=== PATIENT | female | born 1980 | race Caucasian/White ===

== ENCOUNTER 2021-07-14 10:51 | Observation (INO) | payer BC, OTHER ==
[~2021-07-14] VITALS: Ht 167.6 cm; Wt 108.0 kg
[~2021-07-14 10:51] MED LIST: ALBUTEROL0.63 MG/3 NEB; AMITRIPTYLINE100 MG PO; CARAFATE; CARAFATE1 GM PO; CARAFATE1 GM/10 ML PO; COMBIVENT RESPIM4 GM INH; DICYCLOMINE HCL20 MG PO; ESTRADIOL1 MG PO; GABAPENTIN300 MG PO; HALOPERIDOL1 MG PO; HYDROCODON-ACE1 EA11 PO; HYDROCODON-ACE1 EAC7 PO; MONTELUKAST SOD10 MG PO; NUVARING VAGIN1 EACH VG; NYSTATIN-TRIAMC15 GM TOP; PANTOPRAZOLE SO20 MG PO; PANTOPRAZOLE SO40 MG PO; PREVACID30 MG; PROTONIX40 MG/ML PO; RELAFEN DS1000 MG PO; SUBOXONE 4 MG; TIZANIDINE HCL2 M1 PO; TOPIRAMATE100 MG PO; TRAZODONE HCL150 MG PO; VENLAFAXINE HCL75 M1 PO; WELLBUTRIN XL150 MG PO; XOPENEX0.63 MG/3 INH; XOPENEX1.25 MG/3 INH; ZOFRAN8 MG PO; ZYRTEC10 MG PO; [UNRECOGNIZED DRUG - OTHER] SL
[2021-07-14] MEDS ORDERED: SODIUM CHLORIDE 0.9% 50ML 100 ML ONE (11:26)
[2021-07-14] MEDS ORDERED: SEVOFLURANE INHAL SOLN 250 ML PEN BTL ONE (12:04)
[2021-07-14] MEDS ORDERED: METOCLOPRAMIDE HCL 10 MG/2ML VIAL ONE (12:04)
[2021-07-14] MEDS ORDERED: PROPOFOL IV EMULSION 10 MG/ML 20 ML VIAL ONE (12:04)
[2021-07-14] MEDS ORDERED: DEXAMETHASONE SOD PHOS INJ 4 MG/ML SDV ONE (12:04)
[2021-07-14] MEDS ORDERED: POVIDONE IODINE 0.05% 0.05 % ML PO ONE (12:04)
[2021-07-14] MEDS ORDERED: ONDANSETRON HCL INJ 2MG/ML 2ML 2 MG/ML VIAL ONE ×2 (12:04→14:49)
[2021-07-14] MEDS ORDERED: KETOROLAC TROMETHAMINE 30 MG/ML VIAL ONE (12:04)
[2021-07-14] MEDS ORDERED: LIDOCAINE HCL 2% LOCAL INJ 5 ML SDV VIAL INJ ONE (12:04)
[2021-07-14] MEDS ORDERED: MIDAZOLAM HCL 2 MG/2 ML VIAL ONE (12:47)
[2021-07-14] MEDS ORDERED: FENTANYL CITRATE/PF 100MCG/2 ML INJ ONE ×2 (12:47→14:29)
[2021-07-14] MEDS ORDERED: KETAMINE HCL INJ 50 MG/ML 10 ML VIAL ONE (12:47)
[2021-07-14] MEDS ORDERED: BUPIVACAINE HCL 0.5% INJ 30 ML VIAL INJ ONE (12:48)
[2021-07-14] MEDS ORDERED: ACETAMINOPHEN 1000 MG/100 ML 100 ML IV ONE (12:52)
[2021-07-14] MEDS ORDERED: HYDROMORPHONE 1MG/1ML INJ ONE ×3 (12:52→15:08)
[2021-07-14] MEDS ORDERED: SUGAMMADEX SODIUM 200 MG/2 ML VIAL IV ONE (13:52)
[2021-07-14] MEDS ORDERED: ALBUTEROL SULF 0.083% NEB SOLN 3 ML NEB NEB PRN (14:00)
[2021-07-14] MEDS ORDERED: TIZANIDINE HCL 2 MG PO SCH (14:00)
[2021-07-14] MEDS ORDERED: IPRATROPIUM/ALBUTEROL SULFATE 4 GM INH INH PRN (14:00)
[2021-07-14] MEDS: SODIUM CHLORIDE 0.9% 1000ML 1,000 ML IV SCH (16:39)
[2021-07-14] MEDS: NABUMETONE 1000 MG PO SCH (17:00)
[2021-07-14] MEDS ORDERED: TIZANIDINE HCL 4 MG TAB PO PRN (17:00)
[2021-07-14 17:23] VITALS: BP 128/75
[2021-07-14] MEDS: HYDROCODONE/APAP 5MG-325MG TAB PO PRN (18:39)
[2021-07-14 19:36] VITALS: BP 137/84
[2021-07-14 20:00] VITALS: BP 137/84
[2021-07-14 21:00] VITALS: BP 137/84
[2021-07-14] MEDS ORDERED: HALOPERIDOL 1 MG TAB PO SCH (21:00)
[2021-07-14] MEDS ORDERED: DICYCLOMINE HCL 20 MG TAB PO SCH (21:00)
[2021-07-14] MEDS ORDERED: TRAZODONE HCL 75 MG PO SCH (21:00)
[2021-07-14] MEDS ORDERED: ESTRADIOL 1 MG TAB PO SCH (21:00)
[2021-07-14] MEDS ORDERED: TRAZODONE HCL 50 MG TAB PO SCH (21:00)
[2021-07-14] MEDS ORDERED: TOPIRAMATE 100 MG TAB PO SCH (21:00)
[2021-07-14] MEDS ORDERED: AMITRIPTYLINE HCL 25 MG TAB PO SCH (21:00)
[2021-07-14] MEDS ORDERED: SUCRALFATE 1 GM TAB PO SCH (21:00)
[2021-07-14] MEDS: Morphine 4mg Syringe 4 MG/ML INJ IV PRN (21:08)
[2021-07-14] MEDS: ONDANSETRON HCL INJ 2MG/ML 2ML 2 MG/ML VIAL IV PRN (21:08)
[2021-07-14 22:17] VITALS: BP 137/84
[2021-07-15 00:20] VITALS: BP 112/73
[2021-07-15] MEDS: SODIUM CHLORIDE 0.9% 1000ML 1,000 ML IV SCH (00:29)
[2021-07-15] MEDS: Morphine 4mg Syringe 4 MG/ML INJ IV PRN ×3 (00:33→09:14)
[2021-07-15 04:15] VITALS: BP 114/74
[2021-07-15 04:20] VITALS: BP 114/74
[2021-07-15] MEDS: ONDANSETRON HCL INJ 2MG/ML 2ML 2 MG/ML VIAL IV PRN ×2 (04:47→09:14)
[2021-07-15 06:06] LABS: BASOPHILS % 0.1 % (0.0-1.0); HEMATOCRIT 29.4 % (34.2-44.1); HEMOGLOBIN 8.6 g/dL (12.0-16.0); LYMPHOCYTES # (AUTO) 1.5 (1.0-3.2); MEAN CORPUSCULAR HEMOGLOBIN 24.3 pg (28-32); MEAN CORPUSCULAR HGB CONC 29.3 g/dL (31-35); MEAN CORPUSCULAR VOLUME 83.1 fL (81-99); MONOCYTES # (AUTO) 0.7 (0.2-0.8); MONOCYTES % 7.9 % (4.4-11.3); NEUTROPHILS % 73.6 % (38.7-80.0); PLATELET COUNT 233 x10e3/uL (140-360); RED BLOOD COUNT 3.54 x10e6/uL (3.6-5.1); RED CELL DISTRIBUTION WIDTH 16.7 % (11.7-14.4)
[2021-07-15 06:34] LABS: ANION GAP 9.5 mmol/L (8-16); CALCIUM 7.6 mg/dL (8.4-10.2); CREATININE, SERUM 0.64 mg/dL (0.57-1.11); POTASSIUM 3.5 mmol/L (3.5-5.1)
[2021-07-15] MEDS ORDERED: PANTOPRAZOLE SOD 40 MG TABEC PO SCH (07:30)
[2021-07-15 08:28] VITALS: BP 104/93
[2021-07-15 08:46] VITALS: BP 104/93
[2021-07-15] MEDS: NABUMETONE 1000 MG PO SCH (08:59)
[2021-07-15] MEDS ORDERED: NON-FORMULARY MEDICATION (Pantoprazole Sodium 40 MG) PO SCH (09:00)
[2021-07-15] MEDS ORDERED: BUPROPION HCL 150 MG TABCR PO SCH (09:00)
[2021-07-15] MEDS ORDERED: VENLAFAXINE HCL 75 MG CAPCR PO SCH (09:00)
[2021-07-15] MEDS ORDERED: MONTELUKAST SODIUM 10 MG TAB PO SCH (09:00)
[2021-07-15] MEDS ORDERED: LORATADINE 10 MG TAB PO SCH (09:00)
[2021-07-15] MEDS ORDERED: NON-FORMULARY MEDICATION (Cetirizine Hcl (Zyrtec) 10 MG) PO SCH (09:00)
[2021-07-15] MEDS ORDERED: TOPIRAMATE 100 MG TAB PO SCH (09:00)
[2021-07-15] MEDS ORDERED: PERCOCET 7.5-31 EACH PO (10:55)
[2021-07-15 12:09] VITALS: BP 104/59
[2021-07-15] MEDS ORDERED: ONDANSETRON HCL 4 MG ORAL DISINTEGRATING TAB PO PRN (12:30)
[2021-07-15] MEDS: HYDROCODONE/APAP 5MG-325MG TAB PO PRN (12:59)
== END 2021-07-15 13:12 | disposition home or self-care (01) ==
LOC: OR 10:51 → PACU V 14:13 → MED/SURG 15:54
PROVIDERS: ADMIT Surgery; ATTEND Surgery
DX: K21.00 Gastro-esophageal reflux disease with esophagitis, without bleeding (principal); K44.9 Diaphragmatic hernia without obstruction or gangrene; Z90.49 Acquired absence of other specified parts of digestive tract; Z98.84 Bariatric surgery status; Z82.3 Family history of stroke; Z83.3 Family history of diabetes mellitus; Z82.49 Family history of ischemic heart disease and other diseases of the circulatory system; Z84.89 Family history of other specified conditions; Z01.810 Encounter for preprocedural cardiovascular examination; Z01.812 Encounter for preprocedural laboratory examination; Z20.822 Contact with and (suspected) exposure to COVID-19; E66.9 Obesity, unspecified; Z68.38 Body mass index [BMI] 38.0-38.9, adult; J45.909 Unspecified asthma, uncomplicated
CPT/HCPCS: 36415; 43281; 80048; 85025; 93005; 94799 ×2; G0378 ×2; J0131; J0690; J1100; J1170; J1885; J2001; J2250; J2270 ×2; J2405 ×2; J2704; J2765; J3010; J7030 ×2; S0164; U0002

== ENCOUNTER 2021-07-26 17:46 | Emergency (ER) | payer BC ==
[~2021-07-26] VITALS: Ht 167.6 cm; Wt 108.0 kg
[~2021-07-26 17:46] MED LIST changes: +PERCOCET 7.5-31 EACH PO
[2021-07-26] MEDS ORDERED: ONDANSETRON HCL INJ 2MG/ML 2ML 2 MG/ML VIAL IV STA ×2 (18:06→21:04)
[2021-07-26] MEDS ORDERED: KETOROLAC TROMETHAMINE 30 MG/ML VIAL IV STA (18:08)
[2021-07-26] MEDS ORDERED: SODIUM CHLORIDE 0.9% 1000ML 1,000 ML IV ONE (18:15)
[2021-07-26 18:29] LABS: BASOPHILS % 0.5 % (0.0-1.0); EOSINOPHILS # (AUTO) 0.1 (0.0-0.4); EOSINOPHILS % 1.3 % (0.0-6.0); HEMATOCRIT 35.8 % (34.2-44.1); HEMOGLOBIN 10.7 g/dL (12.0-16.0); LYMPHOCYTES # (AUTO) 2.5 (1.0-3.2); LYMPHOCYTES % 32.5 % (18.0-39.1); MEAN CORPUSCULAR HEMOGLOBIN 24.5 pg (28-32); MEAN CORPUSCULAR HGB CONC 29.9 g/dL (31-35); MEAN CORPUSCULAR VOLUME 82.1 fL (81-99); MONOCYTES # (AUTO) 0.7 (0.2-0.8); MONOCYTES % 8.5 % (4.4-11.3); NEUTROPHILS # (AUTO) 4.4 (2.1-6.9); NEUTROPHILS % 56.9 % (38.7-80.0); PLATELET COUNT 305 x10e3/uL (140-360); RED BLOOD COUNT 4.36 x10e6/uL (3.6-5.1); RED CELL DISTRIBUTION WIDTH 17.5 % (11.7-14.4)
[2021-07-26] MEDS ORDERED: SODIUM CHLORIDE 0.9% 50ML 50 ML ONE (18:40)
[2021-07-26] MEDS ORDERED: IOPAMIDOL 370 MG/ML 200 ML INFUS..BTL INJ ONE (18:40)
[2021-07-26 18:45] LABS: ALBUMIN 3.6 g/dL (3.5-5.0); ALBUMIN/GLOBULIN RATIO 0.9 (0.8-2.0); AMYLASE 48 U/L (25-125); ANION GAP 14.4 mmol/L (8-16); CALCIUM 9.6 mg/dL (8.4-10.2); CREATININE, SERUM 0.85 mg/dL (0.57-1.11); LIPASE 66 U/L (8-78); POTASSIUM 3.4 mmol/L (3.5-5.1)
[2021-07-26 19:25] LABS: CLARITY,URINE SL CLOUDY (CLEAR); COLOR,URINE YELLOW (YELLOW); KETONES,URINE NEGATIVE (NEGATIVE); LEUKOCYTE ESTERASE ,URINE NEGATIVE (NEGATIVE); NITRITE,URINE NEGATIVE (NEGATIVE); PROTEIN,URINE DIPSTICK NEGATIVE (NEGATIVE); URINE UROBILINOGEN 0.2 mg/dL (0.2 - 1)
[2021-07-26 19:40] LABS: BACTERIA,URINE FEW /HPF; EPITHELIAL CELLS,URINE MANY /LPF
[2021-07-26 21:18] VITALS: BP 112/74
== END 2021-07-26 21:30 | disposition home or self-care (01) ==
LOC: ER 18:02
DX: R11.2 Nausea with vomiting, unspecified (principal); R10.13 Epigastric pain; Z98.890 Other specified postprocedural states
CPT/HCPCS: 36415; 74177; 80053; 81001; 82150; 83690; 85025; 99284; C9113; J1885; J2405; J7030; Q9967